=== PATIENT | female | born 1995 ===

== ENCOUNTER 2021-06-28 10:27 | Inpatient (IN) | payer OTHER ==
[~2021-06-28] VITALS: Ht 157.5 cm; Wt 55.2 kg
[2021-06-28 11:19] LABS: BASOPHILS % (AUTO) 0.5 % (0.0-2.0); EOSINOPHILS % (AUTO) 1.3 % (1.0-6.0); HEMATOCRIT 39.5 % (36-46); LYMPHOCYTES # (AUTO) 1.6 K/uL (1.0-4.8); LYMPHOCYTES % (AUTO) 22.7 % (22.0-44.0); MEAN CORPUSCULAR HEMOGLOBIN 28.7 pg (26.0-34.0); MEAN CORPUSCULAR HGB CONC 32.8 G/dL (31.0-37.0); MEAN CORPUSCULAR VOLUME 88 fL (80-100); MONOCYTES # (AUTO) 0.6 K/uL (0.1-1.0); MONOCYTES % (AUTO) 8.2 % (2.0-9.0); NEUTROPHILS # (AUTO) 4.9 K/uL (1.8-7.7); NEUTROPHILS % (AUTO) 67.3 % (40.0-70.0); PLATELET COUNT (AUTO) 274 K/uL (150-450); RED BLOOD CELL COUNT(AUTO) 4.51 MIL/uL (4.00-5.20); RED CELL DISTRIBUTION WIDTH 14.4 % (11.5-14.5)
[2021-06-28 11:28] LABS: ANION GAP 10 mmol/L (8-16); CARBON DIOXIDE 28 mmol/L (22-29); CHLORIDE 105 mmol/L (98-107); CREATININE 0.72 mg/dL (0.60-1.30); GLOMERULAR FILTR. RATE CALC > 60 mL/min (>60); GLUCOSE,RANDOM 114 mg/dL (70-110); SODIUM SERUM 143 mmol/L (136-145); UREA NITROGEN, BLOOD 11 mg/dL (7-18)
[2021-06-28 11:35] LABS: ALANINE AMINOTRANSFERASE 31 U/L (12-78); ALBUMIN 4.2 g/dL (3.4-5.0); ALKALINE PHOSPHATASE 72 U/L (46-116); ASPARTATE AMINOTRANSFERASE 18 U/L (15-37); BILIRUBIN,TOTAL 0.5 mg/dL (0.1-1.0); TOTAL PROTEIN, SERUM 7.5 g/dL (6.4-8.2)
[2021-06-28 11:44] LABS: COVID AG,FIA SOURCE NASOPHARYNGEAL
[2021-06-28] MEDS ORDERED: ZOLPIDEM TARTRATE 10 MG TABLET PO PRN (12:45)
[2021-06-28] MEDS ORDERED: HALOPERIDOL 5 MG TABLET PO PRN (12:45)
[2021-06-28] MEDS: LORazepam 2 MG TABLET PO PRN (16:08)
[2021-06-29 00:19] LABS: AMPHET/METH SCREEN,URINE NEGATIVE (NEGATIVE); BARBITURATE SCREEN, URINE NEGATIVE (NEGATIVE); BENZODIAZEPINES SCREEN,URINE NEGATIVE (NEGATIVE); CANNABINOID SCREEN,URINE NEGATIVE (NEGATIVE); COCAINE SCREEN,URINE NEGATIVE (NEGATIVE); METHADONE SCREEN, URINE NEGATIVE (NEGATIVE); OPIATE SCREEN,URINE NEGATIVE (NEGATIVE)
[2021-06-29 00:39] LABS: PHENCYCLIDINE SCREEN,URINE NEGATIVE (NEGATIVE)
[2021-06-29 07:19] LABS: CHOL/HDL RATIO 2.9 (3.9-5.7); CHOLESTEROL 181 mg/dL (131-200); HDL CHOLESTEROL 62 mg/dL (40-60); LDL CHOL (CALC.) 109 mg/dL (0-130); TRIGLYCERIDES 50 mg/dL (15-150)
[2021-06-29 09:20] VITALS: BP 124/77
[2021-06-29] MEDS ORDERED: TraZODone HCL 100 MG TABLET PO PRN (09:45)
[2021-06-29] MEDS: VENLAFAXINE HCL 75 MG ER CAPSULE PO SCH (10:13)
[2021-06-29] MEDS: QUEtiapine FUMARATE 100 MG TABLET PO SCH (10:13)
[2021-06-29] MEDS: OXcarbazepine 300 MG TABLET PO SCH (10:14)
[2021-06-29] MEDS: BENZTROPINE MESYLATE 0.5 MG TABLET PO SCH ×2 (12:12→16:45)
[2021-06-29 19:46] VITALS: BP 142/86
[2021-06-30] MEDS: OXcarbazepine 300 MG TABLET PO SCH (08:23)
[2021-06-30] MEDS: VENLAFAXINE HCL 75 MG ER CAPSULE PO SCH (08:23)
[2021-06-30] MEDS: QUEtiapine FUMARATE 100 MG TABLET PO SCH (08:23)
[2021-06-30] MEDS: BENZTROPINE MESYLATE 0.5 MG TABLET PO SCH ×3 (08:24→16:40)
[2021-06-30 08:27] VITALS: BP 130/91
[2021-06-30 08:28] VITALS: BP 130/91
[2021-06-30 16:30] VITALS: BP 120/78
[2021-06-30] MEDS: LORazepam 2 MG TABLET PO PRN (19:48)
[2021-06-30] MEDS: QUEtiapine FUMARATE 200 MG TABLET PO SCH (20:25)
[2021-07-01] MEDS: VENLAFAXINE HCL 75 MG ER CAPSULE PO SCH (08:40)
[2021-07-01] MEDS: OXcarbazepine 300 MG TABLET PO SCH (08:40)
[2021-07-01] MEDS: BENZTROPINE MESYLATE 0.5 MG TABLET PO SCH ×3 (08:40→16:05)
[2021-07-01 09:10] VITALS: BP 130/82
[2021-07-01 17:36] VITALS: BP 113/68
[2021-07-01] MEDS: QUEtiapine FUMARATE 200 MG TABLET PO SCH (20:07)
[2021-07-02 08:00] VITALS: BP 120/82
[2021-07-02] MEDS: BENZTROPINE MESYLATE 0.5 MG TABLET PO SCH ×2 (08:23→14:03)
[2021-07-02] MEDS: OXcarbazepine 300 MG TABLET PO SCH (08:24)
[2021-07-02] MEDS: VENLAFAXINE HCL 75 MG ER CAPSULE PO SCH (08:24)
[2021-07-02] MEDS ORDERED: BENZ0.5T44 PO (13:19)
[2021-07-02] MEDS ORDERED: QUET200T PO (13:33)
[2021-07-02] MEDS ORDERED: OXCA600T18 PO (13:33)
[2021-07-02] MEDS ORDERED: VENL-67 PO (13:34)
== END 2021-07-02 14:55 | disposition home or self-care (01) | DRG 885 ==
LOC: EMS 10:27 → 3EC 12:41
PROVIDERS: ADMIT Psychiatry & Neurology Psychiatry; ATTEND Psychiatry & Neurology Psychiatry
DX: F31.5 Bipolar disorder, current episode depressed, severe, with psychotic features (principal); F19.10 Other psychoactive substance abuse, uncomplicated; F10.10 Alcohol abuse, uncomplicated; F41.9 Anxiety disorder, unspecified; R00.0 Tachycardia, unspecified; R73.9 Hyperglycemia, unspecified; F94.0 Selective mutism; Z20.822 Contact with and (suspected) exposure to COVID-19; Z79.899 Other long term (current) drug therapy
CPT/HCPCS: 80053; 80061; 84703; 85025; 99285; G0480